=== PATIENT | male | born 1980 | race Caucasian/White ===

== ENCOUNTER 2021-12-18 19:38 | Emergency (ER) | payer MEDICAID, SELFPAY ==
[2021-12-18 19:46] VITALS: BP 102/67; PULSE 92; RESP 17; TEMP 36.9; O2SAT 98; BMI 21.2
--- NOTE | 2021-12-18 21:31 | CTR_ITS ---
PROCEDURE INFORMATION: Exam: CT Maxillofacial Without Contrast, Sinus Exam date and time: 12/18/2021 9:45 PM Age: 41 years old Clinical indication: Face pain; Prior surgery; Surgery type: Multiple sinus surgeries; Patient HX: Facial pressure with sinus congestion. History of chronic sinusitis due to cystic fibrosis. ; Additional info: Immune suppressed with facial pressure TECHNIQUE: Imaging protocol: CT Maxillofacial without contrast. Focus on the sinuses. Radiation optimization: All CT scans at this facility use at least one of these dose optimization techniques: automated exposure control; mA and/or kV adjustment per patient size (includes targeted exams where dose is matched to clinical indication); or iterative reconstruction. COMPARISON: No relevant prior studies available. RADIATION DOSE METRICS: Total DLP (mGy-cm): 426.38 FINDINGS: Frontal sinuses: Opacified right frontal sinus. Mucosal thickening and partial opacification of the left frontal sinus. Ethmoid air cells: Opacified ethmoid sinuses. Sphenoid sinuses: Opacified sphenoid sinuses. Maxillary sinuses: Sequela of FESS. Opacification of the left maxillary sinus. Mucosal thickening and partial opacification of the right maxillary sinus. Nasal cavity: Unremarkable. Orbital cavities: Orbits are normal. Globes are unremarkable. Bones/joints: Unremarkable. Soft tissues: Unremarkable. CT/CT sinus wo con* [id number] IMPRESSION: Pansinusitis.
--- NOTE | 2021-12-18 21:31 | XRR_ITS ---
PROCEDURE INFORMATION: Exam: XR Chest Exam date and time: 12/18/2021 9:36 PM Age: 41 years old Clinical indication: Fever; Additional info: Fever, lung transplant TECHNIQUE: Imaging protocol: Radiologic exam of the chest. Views: 1 view. COMPARISON: No relevant prior studies available. FINDINGS: Lungs: No consolidation. Pleural spaces: No pleural effusion. No pneumothorax. Heart/Mediastinum: No cardiomegaly. Bones/joints: Visualized osseous structures are intact. XR/XR chest 1V portable [id number] IMPRESSION: No acute findings.
--- NOTE | 2021-12-18 21:34 | W.ED.GENADLT ---
HPI - General Adult General: Chief complaint: General Medical Stated complaint: fever/headache Time Seen by Provider: 12/18/21 21:11 Source: patient Mode of arrival: ambulatory Limitations: no limitations History of Present Illness: This patient presents to our emergency department because of concerns about intermittent fevers over the past approximately 7 days. He states that his fever has elevated in the 100.2-100.4 range intermittently over that period of time. He states he has had associated facial pressure and frontal headache. He is also had some congestion but denies sore throat. He denies cough or wheezing or other respiratory problems. He states that others at home have had pinkeye and other mild upper respiratory symptoms. 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 He states he is taking all his prescribed immune suppressant drugs faithfully. He states that he has had sweats at night for the same period of time. He denies any nausea vomiting or diarrhea but states his appetite has been somewhat diminished. He has been drinking fluids but feels like he is urinating less than usual. He denies abdominal pain skin rashes etc. He states he has had a few tick bites most recently took a small tick that was not engorged off today. He denies any recent travel other than from [place] to the focal area. He is unimmunized against COVID-19 or influenza. Associated symptoms: Reports fevers/chills and headache(s); Deny chest pain, dyspnea, nausea, rash, palpitations or vomiting Review of Systems Const: Reports: fever(s), chills, body aches, change in appetite and night sweats Eyes: Denies: change in vision ENMT: Reports: nasal discharge, nasal congestion, post nasal drip and sinus pain; Denies: throat pain, odynophagia or dental pain Card: Denies: chest pain, palpitations or irregular heart rhythm Resp: Denies: dyspnea, productive cough or non-productive cough GI: Denies: abdominal pain, nausea, vomiting or diarrhea : Denies: flank pain, difficulty urinating, dysuria or urinary frequency Musc: Denies: neck pain, back pain, extremity pain or extremity swelling Skin/Breast: Denies: rash or pruritus Neuro: Reports: headache(s); Denies: dizziness or vertigo Wilfredo/Lymph: Denies: easy bruising or easy bleeding Physical Exam Narrative: EXAM NARRATIVE: He is alert converses in complete sentences. Has normal affect and makes good eye contact. Const: COMMON NORMALS: average body habitus, patient oriented x3 and healthy appearing GENERAL APPEARANCE: cooperative and comfortable HENMT: COMMON NORMALS: normocephalic, atraumatic, EAC's normal, TM's normal bilaterally, Normal nasal mucous membranes and turbinates present and moist oral mucous membranes HEAD & SCALP: normocephalic and atraumatic FACE & SINUS: normal facial exam NOSE: Normal nasal mucous membranes and turbinates present EXTERNAL AUDITORY CANAL: EAC's normal TYMPANIC MEMBRANE: TM's normal bilaterally Eye: COMMON NORMALS: Equal, round and reactive pupils present, EOMs intact bilaterally, conjunctivae normal and no scleral icterus CONJUNCTIVA: Yes conjunctivae normal PUPIL: Yes Equal, round and reactive pupils present Neck/C-Spine: COMMON NORMALS: full ROM, no lymphadenopathy, supple and no meningeal signs Lymph: LYMPHATIC: no lymphadenopathy noted Chest: COMMONS NORMALS: normal inspection of the chest Resp: COMMON NORMALS: normal respiratory effort, No retractions, No use of accessory muscles and clear to auscultation bilaterally EFFORT & INSPECTION: Yes able to speak in complete sentences AUSCULTATION: clear to auscultation bilaterally Cardio: COMMON NORMALS: regular rate, regular rhythm, No murmurs present (Cardio) and Peripheral pulses 2+ throughout RATE: regular rate RHYTHM: regular rhythm PERIPHERAL PULSES: Peripheral pulses 2+ throughout GI: COMMON NORMALS: Normal to inspection, nondistended, normoactive bowel sounds present, Soft to palpation and non-tender PALPATION: Yes Soft to palpation : COMMON NORMALS: Yes no CVA tenderness BLADDER/KIDNEY EXAM: Yes no CVA tenderness Back/Pelvis: COMMON NORMALS: no CVA tenderness, thoracic and lumbar spine normal to inspection, no thoracic nor lumbar tenderness and thoraco-lumbar ROM normal Extremity: COMMON NORMALS: normal to inspection, full ROM, capillary refill normal, no calf tenderness and no pedal edema Neuro: COMMON NORMALS: patient oriented x3, moves all extremities, no focal motor deficits and no sensory deficits noted MENINGEAL SIGNS: Yes no meningeal signs CRANIAL NERVES: Yes CN normal except as noted SPEECH: speech normal Psych: COMMON NORMALS: mental status grossly normal Skin: COMMON NORMALS: no rashes or lesions noted, no wounds, turgor normal and no petechiae GENERAL SKIN EXAM: no rashes or lesions noted and turgor normal Course Reevaluation(s): Reevaluation #1: Patient remained clinically stable. IV fluids were infusing. Ancillary studies at this time show mild transaminitis as well as mild hyponatremia. His CT of his sinuses reveals significant pansinusitis. We will plan on giving a loading dose of Rocephin 2 g IV piggyback completing his IV infusion and discharging him on oral antibiotics. We will also attempt to touch base with his transplant team in [place] to give him an update. Time: 22:59 Consultations: Consultation #1: Was able to reach Dr. Hoyos at [facility] transplant team. We reviewed his current presentation and he made treatment recommendations and that he would prefer using Cipro to cover Pseudomonas and any other potential atypical bacteria. He also recommended that the patient give him a call and approximately 3 days to ensure that he is continue to improve. Time: 23:16 Vital Signs: Vital signs: Vital Signs Temperature 98.5 F 12/18/21 19:46 Pulse Rate 77 12/18/21 22:30 Respiratory Rate 17 12/18/21 19:46 Blood Pressure 94/45 12/18/21 22:30 Pulse Oximetry 96 12/18/21 22:30 [facility] - General Adult Medical Decision Making Patient presented to our emergency department with approximately 7-day history of low-grade fever facial pressure and generalized malaise. He is a status post bilateral lung transplant 3 years at the [facility]. His evaluation this evening revealed imaging consistent with pansinusitis without any other obvious source of infection at this juncture. A very minimal transaminitis as well as a mild hyponatremia were also concomitant. He is clinically stable without any signs of sepsis or other overwhelming infection. We did give him a loading dose of Rocephin in the emergency department and will continue him on oral Cipro per the request of his transplant team. Stable at this time to be discharged on antibiotics with close follow-up. Medical Records I reviewed the patient's medical records. Lab Data I reviewed the patient's lab results. : 12/18/21 22:06 12/18/21 22:06 Radiology Impressions Chest X-Ray 12/18/21 21:31 IMPRESSION: No acute findings. Sinuses CT 12/18/21 21:31 IMPRESSION: Pansinusitis. ADDENDUM: 12/18/21 [id number] Osseous hypertrophy of the sinus rea is suggestive of chronic pansinusitis. Laboratory Results WBC 5.1 10^3/uL (4.0-10.0) 12/18/21 22:06 RBC 4.30 10^6/uL (4.1-5.3) 12/18/21 22:06 Hgb 12.6 g/dL (11.7-16.6) 12/18/21 22:06 Hct 37.4 % (42.0-52.0) L 12/18/21 22:06 MCV 87.0 fl (80-94) 12/18/21 22:06 MCH 29.3 pg (28.0-34.0) 12/18/21 22:06 MCHC 33.7 g/dL (30.0-36.0) 12/18/21 22:06 RDW 12.0 % (12.1-15.1) L 12/18/21 22:06 Plt Count 153 10^3/cmm (130-400) 12/18/21 22:06 MPV 10.2 fL (7.4-10.4) 12/18/21 22:06 Neut % (Auto) 56.8 % 12/18/21 22:06 Lymph % (Auto) 32.3 % 12/18/21 22:06 Stark % (Auto) 10.3 % 12/18/21 22:06 Eos % (Auto) 0.0 % 12/18/21 22:06 Baso % (Auto) 0.2 % 12/18/21 22:06 Neut # (Auto) 2.87 10^3/uL (1.8-7.7) 12/18/21 22:06 Lymph # (Auto) 1.6 10^3/uL (0.8-4.8) 12/18/21 22:06 Stark # (Auto) 0.5 10^3/uL (0.2-0.9) 12/18/21 22:06 Eos # (Auto) 0.0 10^3/uL (0.0-0.8) 12/18/21 22:06 Baso # (Auto) 0.0 10^3/uL (0.0-0.1) 12/18/21 22:06 Nucleated RBC % (auto) 0 % 12/18/21 22:06 Nucleated RBCs # 0.0 /100WBC 12/18/21 22:06 Sodium 128 mmol/L (136-145) L 12/18/21 22:06 Potassium 4.0 mmol/L (3.5-5.1) 12/18/21 22:06 Chloride 90 mmol/L (98-107) L 12/18/21 22:06 Carbon Dioxide 27 mmol/L (22-29) 12/18/21 22:06 Anion Gap 15.0 (5-19) 12/18/21 22:06 BUN 16 mg/dL (6-20) 12/18/21 22:06 Creatinine 0.7 mg/dL (0.7-1.2) 12/18/21 22:06 GFR Calculation 125.5 mL/min (90-130) 12/18/21 22:06 Glucose 116 mg/dL (65-115) H 12/18/21 22:06 Calculated Osmolality 268 mOsm/kg (285-295) L 12/18/21 22:06 Calcium 9.1 mg/dL (8.5-10.5) 12/18/21 22:06 Total Bilirubin 0.4 mg/dL (0.15-1.2) 12/18/21 22:06 AST 45 U/L (0-40) H 12/18/21 22:06 ALT 65 U/L (0-41) H 12/18/21 22:06 Alkaline Phosphatase 148 IU/L (40-130) H 12/18/21 22:06 Total Protein 6.8 g/dL (6.6-8.7) 12/18/21 22:06 Albumin 3.8 g/dL (3.5-5.2) 12/18/21 22:06 Globulin 3.0 g/dL (1.3-4.6) 12/18/21 22:06 Urine Color Yellow (Yellow) 12/18/21 22:18 Urine Appearance Clear (CLEAR) 12/18/21 22:18 Urine pH 5 (5-7) 12/18/21 22:18 Ur Specific Neeses 1.020 (1.005-1.030) 12/18/21 22:18 Urine Protein Neg (Negative) 12/18/21 22:18 Urine Glucose (UA) Norm (Normal) 12/18/21 22:18 Urine Ketones Negative (Negative) 12/18/21 22:18 Urine Blood Neg (Negative) 12/18/21 22:18 Urine Nitrate Negative (Negative) 12/18/21 22:18 Urine Bilirubin Neg (Negative) 12/18/21 22:18 Urine Urobilinogen Norm mg/dL (Negative) 12/18/21 22:18 Ur Leukocyte Esterase Negative (Negative) 12/18/21 22:18 SARS-CoV-2 Ag (Rapid) Negative (Negative) 12/18/21 22:06 Discharge Plan Discharge Patient Disposition: Home Clinical Impression: Acute pansinusitis Condition: Stable Prescriptions: New ciprofloxacin HCl 750 mg tablet 750 mg PO Q12H Qty: 28 0RF Discharge Orders: Discharge ED (Routine); Ordered 12/18/21 Ordered By: Dayo Allen Discharge Diet: Usual diet Discharge Activity: Increase activity as tolerated Patient Instructions: Opioid Safety Activity Restrictions/Additional Instructions: Take your routine medications as prescribed. We have prescribed ciprofloxacin for you to take 1 pill twice daily for the next 2 weeks. Continue to monitor your temperature and other symptoms. If you are not improving in the next 72 hours or thereabouts touch base with your transplant team for further recommendations or you may return to this or the nearest emergency department at any time. Coding Level of Care Code ED Field Clinical Engineer for Yolanda Arriaza Exam Comprehensive
[2021-12-18 22:16] LABS: Basophils % 0.2 %; Hematocrit 37.4 % (42.0-52.0); Hemoglobin 12.6 g/dL (11.7-16.6); Lymphocytes # 1.6 10^3/uL (0.8-4.8); Lymphocytes % 32.3 %; Mean Corpuscular HGB Conc 33.7 g/dL (30.0-36.0); Mean Corpuscular Hemoglobin 29.3 pg (28.0-34.0); Mean Platelet Volume 10.2 fL (7.4-10.4); Monocytes # 0.5 10^3/uL (0.2-0.9); Monocytes % 10.3 %; Neutrophils # 2.87 10^3/uL (1.8-7.7); Neutrophils % 56.8 %; Nucleated Red Blood Cells % 0 %; Platelet Count 153 10^3/cmm (130-400); White Blood Count 5.1 10^3/uL (4.0-10.0)
[2021-12-18] MEDS: sodium chloride 0.9% 1,000 ML 999 ML IV (22:21)
[2021-12-18 22:30] VITALS: BP 94/45; PULSE 77; O2SAT 96
[2021-12-18 22:30] LABS: Alanine Aminotransferase 65 U/L (0-41); Albumin Level 3.8 g/dL (3.5-5.2); Alkaline Phosphatase 148 IU/L (40-130); Aspartate Amino Transferase 45 U/L (0-40); Blood Urea Nitrogen 16 mg/dL (6-20); Calcium 9.1 mg/dL (8.5-10.5); Carbon Dioxide 27 mmol/L (22-29); Chloride 90 mmol/L (98-107); Glomerular Filtration Rate 125.5 mL/min (90-130); Glucose 116 mg/dL (65-115); Osmolality Calculated 268 mOsm/kg (285-295); Sodium 128 mmol/L (136-145); Total Bilirubin 0.4 mg/dL (0.15-1.2); Total Protein 6.8 g/dL (6.6-8.7)
[2021-12-18 22:31] LABS: Add Urine Microscopic? NO; Charge for UA Resulting for Rev
[2021-12-18 22:32] LABS: Slide Review Slide Review Perform
[2021-12-18 22:33] LABS: SARS Covid-2 Antigen Negative (Negative)
[2021-12-18 22:33] LABS: Bilirubin Urine Neg (Negative); Blood Urine Neg (Negative); Glucose Urine UA Norm (Normal); Ketones Urine Negative (Negative); Leukocyte Esterase Urine Negative (Negative); Nitrate Urine Negative (Negative); Protein Urine Neg (Negative); Urine Appearance Clear (CLEAR); Urine Color Yellow (Yellow); Urobilinogen Urine Norm (Negative); pH Urine 5 (5-7)
[2021-12-18] MEDS: cefTRIAXone 2,000 MG in sodium chloride 0.9% (plus) 50 ML 100 MG IV (23:09)
[2021-12-19 00:10] VITALS: BP 108/50; PULSE 91; RESP 18; O2SAT 99
[2021-12-20 14:23] LABS: Lyme AB Screen <0.90 index
[2021-12-25 18:19] LABS: RMSF IGG NOT DETECTED; RMSF IGM NOT DETECTED
[2021-12-26 21:32] LABS: E. Chaffeensis AB IGM <1:20; Interpretation PAST INFECTION
== END 2021-12-18 23:56 | disposition home or self-care (01) ==
PROVIDERS: Emergency Provider Emergency Medicine
DX: J01.40 Acute pansinusitis, unspecified (principal); Z94.2 Lung transplant status
CPT/HCPCS: 70486; 71045; 80053; 81003; 85025; 86618; 86666; 86757; 87040; 87426; 96365; 99284; J0696; J7030